=== PATIENT | male | born 1995 | race Caucasian/White ===

== ENCOUNTER 2018-02-24 21:09 | Emergency (ER) | payer OTHER ==
[~2018-02-24] VITALS: Ht 188 cm; Wt 108.9 kg
[~2018-02-24 21:09] MED LIST: AUGMENTIN 875-1 EACH PO; FLONASE 0.05%50 MCG NASAL; KEFLEX500 MG PO; NOHOMEMEDICATIONS; NORCO 5-325 TA1 EACH PO; ULTRAM 50MG TAB50 MG PO
[2018-02-24] MEDS ORDERED: XANAX 0.25 MG0.25 MG (21:17)
[2018-02-24] MEDS ORDERED: BACTROBAN CREAM30 G1 TOP (21:28)
[2018-02-24] MEDS ORDERED: KEFLEX500 M1 PO (21:28)
[2018-02-24 21:34] VITALS: BP 128/93
== END 2018-02-24 21:34 | disposition home or self-care (01) ==
LOC: M.ERS 21:09
DX: L01.00 Impetigo, unspecified (principal)

== ENCOUNTER 2018-04-18 14:00 | Emergency (ER) | payer OTHER ==
[~2018-04-18] VITALS: Ht 188 cm; Wt 108.9 kg
[~2018-04-18 14:00] MED LIST changes: +BACTROBAN CREAM30 G1 TOP; +KEFLEX500 M1 PO; +XANAX 0.25 MG0.25 MG
[2018-04-18 14:26] LABS: URINE BILIRUBIN NEGATIVE (Negative); URINE BLOOD NEGATIVE (Negative); URINE CLARITY CLEAR; URINE COLOR YELLOW; URINE GLUCOSE-RANDOM NEGATIVE (Negative); URINE KETONES NEGATIVE (Negative); URINE LEUKOCYTES-REFLEX NEGATIVE (Negative); URINE NITRITE-REFLEX NEGATIVE (Negative); URINE PROTEIN NEGATIVE (Negative); URINE UROBILINOGEN 0.2 E.U./dl (0.2-1.0)
[2018-04-18 14:59] LABS: ABSOLUTE BASOPHILS 0.1 thou/uL (0.0-0.2); ABSOLUTE EOSINOPHILS 0.1 thou/uL (0.0-0.7); ABSOLUTE LYMPHOCYTES 1.9 thou/uL (0.8-5.3); ABSOLUTE MONOCYTES 0.9 thou/uL (0.0-1.2); ABSOLUTE NEUTROPHILS 7.6 thou/uL (1.6-8.1); BASOPHILS 0.7 %; EOSINOPHILS 0.9 %; HEMATOCRIT 45.9 % (42.0-52.0); HEMOGLOBIN 15.2 gm/dL (14.0-18.0); MCH 27.9 pg (26.0-34.0); MCHC 33.2 g/dL (28.0-37.0); MCV 83.9 fL (80.0-100.0); MONOCYTES 8.7 %; MPV 7.8 fl. (7.2-11.1); NUCLEATED RBCS 0 /100WBC; PLATELET COUNT* 303 thou/uL (150-400); POLYS 71.7 %; RBC 5.47 mil/uL (4.50-6.00); RDW-CV 13.7 % (10.5-14.5); WBC 10.6 thou/uL (4.0-11.0)
[2018-04-18 15:08] LABS: CALCIUM 9.1 mg/dL (8.5-10.1); CREATININE 0.9 mg/dL (0.6-1.3); POTASSIUM 3.8 mmol/L (3.5-5.1)
[2018-04-18 15:12] LABS: ALBUMIN 4.2 g/dL (3.4-5.0); TOTAL BILIRUBIN 0.9 mg/dL (<0.1-1.0); TOTAL PROTEIN 8.1 g/dL (6.4-8.2)
[2018-04-18] MEDS ORDERED: NORCO 5-325 TA1 EACH PO (16:56)
[2018-04-18] MEDS ORDERED: ZOFRAN ODT4 MG PO (16:56)
[2018-04-18 17:13] VITALS: BP 125/85
== END 2018-04-18 17:14 | disposition home or self-care (01) ==
LOC: M.ERS 14:00
PROVIDERS: Emergency Medicine Emergency Medical Services
DX: R10.32 Left lower quadrant pain (principal); F41.9 Anxiety disorder, unspecified

== ENCOUNTER → 2019-05-19 | Day surgery (SDC) | payer OTHER ==
[~2019-05-19] MED LIST changes: +ZOFRAN ODT4 MG PO
--- NOTE | 2019-05-24 11:37 | OP ---
[address] [address] OPERATIVE REPORT Name: HAWA BEDOLLA Room: [facility] [employer]#: [id number] Admission: 05/19/19 Attend Phys: Phil Paz II Discharge: Date of : 89 Report #: [id number] THIS REPORT FOR: //name// CC: [facility] physician/PCP Phil Paz DATE OF SERVICE: 05/19/2019 PREOPERATIVE DIAGNOSIS: Right ring finger proximal phalanx fracture with angulation and displacement. POSTOPERATIVE DIAGNOSIS: Right ring finger proximal phalanx fracture with angulation and displacement. PROCEDURE: Open reduction and internal fixation of right ring proximal phalanx fracture. SURGEON: Phil Paz II, DO DOCTOR OF MEDICINE: VIOLETTA Price. ANESTHESIA: Per operative record. ESTIMATED BLOOD LOSS: Minimal. ANTIBIOTICS: Per operative record. DRAINS: None. COMPLICATIONS: None. DISPOSITION: Stable to recovery room. IMPLANTS USED: [place] 2 mm hand screws. OPERATIVE PROCEDURE: The patient was taken to the operative suite and placed supine on the operating table after given appropriate anesthesia. The patient's right ring finger was sterilely prepped and draped with well-padded tourniquet applied to the upper arm. The tourniquet was inflated after Esmarch exsanguination and attention was then turned back to the ring finger. It was x-rayed utilizing C-arm fluoroscopy. The fracture was evaluated and found. An incision was then made over the fracture site on the dorsal aspect of the right ring finger proximal phalanx. This was carried down to the subcutaneous tissues. The extensor tendon was then split in the midline over the full dorsal aspect and the periosteum was reflected off of the bone to expose the fracture. This fracture was then reduced utilizing a pointed reduction forceps and held in [address] [address] OPERATIVE REPORT Name: GRAEMEHAWA HEARD Room: [facility].#: [id number] Admission: 05/19/19 Attend Phys: Phil Paz II Discharge: Date of : 89 Report #: [id number] with C-arm confirming excellent anatomic reduction. The drill was then utilized to drill through both cortices, both medial and lateral and two 2.0 mm screws were then placed with lag screw technique. This fracture was then compressed and visualized with C-arm to be in excellent anatomic reduction. Irrigation was then performed. The periosteum was then reapproximated and sutured utilizing 4-0 Vicryl. The extensor wad was then closed utilizing a 4-0 Vicryl and running stitch. The skin was closed with 2-0 Vicryl and running Monocryl stitch. Dermabond and sterile dressing and an ulnar gutter splint and 90 degrees of MCP flexion was applied. The patient was transferred to recovery room in stable condition. Counts were correct throughout the procedure. <ELECTRONICALLY SIGNED> By: Phil Paz II, 05/24/19 [id number] Paz II, DO /nt
== END | disposition home or self-care (01) ==
LOC: M.SUR 06:46
DX: S62.614A Displaced fracture of proximal phalanx of right ring finger, initial encounter for closed fracture (principal); Z98.890 Other specified postprocedural states; Z79.899 Other long term (current) drug therapy; X58.XXXA Exposure to other specified factors, initial encounter; Y93.89 Activity, other specified; Y92.89 Other specified places as the place of occurrence of the external cause; Y99.8 Other external cause status